=== PATIENT | female | born 1950 | race Caucasian/White ===

== ENCOUNTER → 2016-07-14 | Outpatient (CLI) | payer MEDICARE, MEDICAID ==
[~2016-07-14] MED LIST: ACETAMINOPHEN-O1 TAB PO; AMLODIPINE BESY1 TAB PO; CLARITIN10 MG PO; CYCLOBENZAPRINE10 MG PO; DULOXETINE HCL60 MG PO; Duragesic 25 M25 MCG TD; LORAZEPAM1 MG PO; NAPROSYN500 MG PO; OMEPRAZOLE D/R20 MG PO; OXYBUTYNIN CHLOR5 MG PO; TRAZADONE HYDR100 MG PO
== END | disposition home or self-care (01) ==
LOC: CT 07-10 14:00
PROVIDERS: Anesthesiology
DX: M54.16 Radiculopathy, lumbar region (principal)

== ENCOUNTER 2017-02-01 20:12 | Emergency (ER) | payer MEDICARE, MEDICAID ==
[~2017-02-01] VITALS: Ht 167.6 cm; Wt 56.7 kg
[2017-02-01 21:12] LABS: HEMATOCRIT 25.1 % (37.0-47.0); HEMOGLOBIN 7.5 g/dl (12.0-16.0); MEAN CELL VOLUME 90.9 fl (81.0-99.0); MEAN CORPUSCULAR HGB 27.2 pg (27.0-31.0); MEAN CORPUSCULAR HGB CONC 29.9 g/dl (33.0-37.0); MEAN PLATELET VOLUME 10.6 fl (9.6-12.3); PLATELET COUNT AUTOMATED 177 10*3/uL (130-400); RED BLOOD COUNT 2.76 10*6/uL (4.10-5.10); RED CELL DISTRI WIDTH 15.3 % (0-14.5); WHITE BLOOD COUNT 22.7 10*3/uL (4.8-10.8)
[2017-02-01 21:23] LABS: ACT PARTIAL THROMBO TIME 33.7 SECONDS (20.8-31.5); INTERNATIONAL NORM RATIO 1.1 (2.0-3.5)
[2017-02-01 21:31] LABS: ALBUMIN 1.6 gm/dl (3.1-4.5); ALKALINE PHOSPHATASE 168 U/L (45-117); BUN 20 mg/dl (7-24); CHLORIDE 99 mmol/L (98-107); CREATININE 1.23 mg/dL (0.55-1.02); MAGNESIUM 2.1 mg/dL (1.5-2.1); POTASSIUM 3.3 mmol/L (3.5-5.1); SGOT/AST 10 IU/L (3-35); SGPT/ALT 14 U/L (12-78); SODIUM 136 mmol/L (136-145); TOTAL PROTEIN 7.1 gm/dL (6.4-8.2)
[2017-02-01 21:32] LABS: PLATELET SUFFICIENCY NORMAL (NORMAL); TOTAL CELLS COUNTED 100 #CELLS
[2017-02-01 21:33] LABS: POLYCHROMASIA SLIGHT
[2017-02-01 21:34] LABS: ROULEAUX SLIGHT; TROPONIN I < 0.015 ng/ml (<0.045)
[2017-02-01 23:55] LABS: BILIRUBIN NEGATIVE (NEGATIVE); BLOOD NEGATIVE (NEGATIVE); CLARITY CLEAR (CLEAR); COLOR YELLOW (YELLOW); GLUCOSE NEGATIVE (NEGATIVE); KETONE NEGATIVE (NEGATIVE); LEUKO ESTERASE NEGATIVE (NEGATIVE); NITRITE NEGATIVE (NEGATIVE); SPECIFIC GRAVITY <= 1.005 (1.005-1.030); UROBILINOGEN 0.2 E.U./dl (0.2-1.0)
[2017-02-02 00:06] LABS: BACTERIA 1+
[2017-02-02 03:15] LABS: BASO % 0.2 % (0.0-1.0); EOS # 0.1 10*3/uL (0.0-0.4); EOS % 0.5 % (1.0-4.0); HEMATOCRIT 25.1 % (37.0-47.0); HEMOGLOBIN 7.4 g/dl (12.0-16.0); LYMPH % 10.8 % (27.0-41.0); MEAN CORPUSCULAR HGB 26.5 pg (27.0-31.0); MEAN CORPUSCULAR HGB CONC 29.5 g/dl (33.0-37.0); MEAN PLATELET VOLUME 10.2 fl (9.6-12.3); MONO # 1.2 10*3/uL (0.1-1.0); MONO % 6.3 % (3.0-9.0); NEUT # 15.2 10*3/uL (2.3-7.9); NEUT % 80.8 % (47.0-73.0); PLATELET COUNT AUTOMATED 262 10*3/uL (130-400); RED BLOOD COUNT 2.79 10*6/uL (4.10-5.10); RED CELL DISTRI WIDTH 15.3 % (0-14.5); WHITE BLOOD COUNT 18.8 10*3/uL (4.8-10.8)
[2017-02-02 04:44] VITALS: BP 111/42
== END 2017-02-02 05:05 | disposition short-term general hospital (02) ==
LOC: ED 20:12
PROVIDERS: Student in an Organized Health Care Education/Training Program
DX: A41.9 Sepsis, unspecified organism (principal); R65.20 Severe sepsis without septic shock; K92.2 Gastrointestinal hemorrhage, unspecified; J18.1 Lobar pneumonia, unspecified organism; D64.9 Anemia, unspecified; R91.8 Other nonspecific abnormal finding of lung field; I95.9 Hypotension, unspecified; Z91.030 Bee allergy status; Z88.0 Allergy status to penicillin; Z88.1 Allergy status to other antibiotic agents; Z91.040 Latex allergy status; Z88.8 Allergy status to other drugs, medicaments and biological substances; Z79.899 Other long term (current) drug therapy

== ENCOUNTER 2020-02-22 12:07 | Inpatient (IN) | payer OTHER, MEDICAID ==
[~2020-02-22] VITALS: Ht 167.6 cm; Wt 47.2 kg
[2020-02-22 12:12] VITALS: BP 129/59
[2020-02-22 12:53] LABS: BASO % 0.3 % (0.0-1.0); EOS % 0.3 % (1.0-4.0); HEMATOCRIT 41.1 % (37.0-47.0); LYMPH % 8.1 % (27.0-41.0); MEAN CELL VOLUME 93.4 fl (81.0-99.0); MEAN CORPUSCULAR HGB CONC 29.9 g/dl (33.0-37.0); MEAN PLATELET VOLUME 9.3 fl (9.6-12.3); MONO # 0.7 10*3/uL (0.1-1.0); MONO % 5.6 % (3.0-9.0); NEUT # 10.9 10*3/uL (2.3-7.9); NEUT % 85.2 % (47.0-73.0); PLATELET COUNT AUTOMATED 349 10*3/uL (130-400); RED CELL DISTRI WIDTH 14.3 % (0-14.5); WHITE BLOOD COUNT 12.8 10*3/uL (4.8-10.8)
[2020-02-22 13:06] LABS: INTERNATIONAL NORM RATIO 0.9 (2.0-3.5)
[2020-02-22 13:14] LABS: ALBUMIN 3.5 gm/dl (3.1-4.5); ALKALINE PHOSPHATASE 118 U/L (45-117); BUN 17 mg/dl (7-24); CHLORIDE 99 mmol/L (98-107); LIPASE 71 U/L (73-393); POTASSIUM 3.9 mmol/L (3.5-5.1); SGOT/AST 13 IU/L (3-35); SGPT/ALT 26 U/L (12-78); SODIUM 140 mmol/L (136-145); TOTAL PROTEIN 7.8 gm/dL (6.4-8.2)
[2020-02-22 13:15] LABS: TROPONIN I < 0.015 ng/ml (<0.045)
--- NOTE | 2020-02-22 14:02 | NUR ---
VOMITING COFFEE GROUND EMESIS. ZOFRAN INEFFECTIVE. DR SHEETS AWARE.
[2020-02-22 14:44] VITALS: BP 139/66
[2020-02-22 15:05] VITALS: BP 156/57
--- NOTE | 2020-02-22 16:12 | NUR ---
NAUSEA A LITTLE BETTER AFTER PHENERGAN.
[2020-02-22 16:48] VITALS: BP 126/58
--- NOTE | 2020-02-22 17:01 | NUR ---
RESTING IN NO DISTRESS. CALL LIGHT IN REACH.
--- NOTE | 2020-02-22 17:35 | NUR ---
DR ACHARYA NOTIFIED OF NEW CONSULT FOR GI BLEED. ORDERS RECIEVED.
[2020-02-22 17:40] VITALS: BP 117/67
--- NOTE | 2020-02-22 17:40 | NUR ---
A 69, admitted to , under the services of SHAWNEE Kumar DO with a diagnosis of GI BLEED. Chief complaint is COFFEE GROUND EMESIS. Patient arrived via ambulatory from ER. Monitor applied. Initial assessment completed. Vital signs taken and recorded. SHAWNEE KUMAR DO notified of admission to the unit. Orders received. See assessment for past medical history, medications and allergies. Patient and/or family oriented to unit. [facility] visitation policy reviewed. Clothing/patient valuable form completed. FAVIOLA VENTURA
[2020-02-22 20:00] VITALS: BP 138/66
--- NOTE | 2020-02-22 20:57 | NUR ---
ZOFRAN AND MORPHINE GIVEN FOR C/O NAUSEA AND MORRIS. WILL MONITOR. CALL LIGHT IN REACH.
--- NOTE | 2020-02-22 22:12 | NUR ---
PER PT, ZOFRAN AND MORPHINE EFFECTIVE. CALL LIGHT IN REACH. IVF INFUSING WITH EASE.
[2020-02-23] VITALS (8 sets, daily range): BP systolic 99–144; BP diastolic 42–86
--- NOTE | 2020-02-23 00:20 | NUR ---
RESTING IN BED; AROUSES EASILY FOR ASSESSMENT. SKIN VERY PALE, WARM & DRY. IV FLUIDS INFUSING INTO LEFT HAND WITHOUT DIFFICULTY; SITE ASYMPTOMATIC. PT. VOICES NO C/O AT THIS TIME. PRE-OP QUESTIONNAIRE DONE AT THIS TIME. NO DISTRESS NOTED; CALL LIGHT WITHIN REACH.
[2020-02-23 01:25] LABS: CLARITY CLEAR (CLEAR); COLOR YELLOW (YELLOW)
[2020-02-23 01:26] LABS: BILIRUBIN NEGATIVE; BLOOD NEGATIVE (NEGATIVE); GLUCOSE NEGATIVE; KETONE NEGATIVE; LEUKO ESTERASE NEGATIVE (NEGATIVE); NITRITE NEGATIVE (NEGATIVE); PH > 9.0 (4.5-8.0); SPECIFIC GRAVITY > 1.030 (1.001-1.030)
--- NOTE | 2020-02-23 04:00 | NUR ---
BATHED BY EDUARD.
[2020-02-23 06:13] LABS: BASO # 0.1 10*3/uL (0.0-0.1); BASO % 0.7 % (0.0-1.0); EOS # 0.3 10*3/uL (0.0-0.4); LYMPH # 1.9 10*3/uL (1.3-4.4); LYMPH % 25.4 % (27.0-41.0); MEAN CELL VOLUME 96.2 fl (81.0-99.0); MEAN CORPUSCULAR HGB 28.3 pg (27.0-31.0); MEAN CORPUSCULAR HGB CONC 29.4 g/dl (33.0-37.0); MEAN PLATELET VOLUME 9.8 fl (9.6-12.3); MONO # 0.6 10*3/uL (0.1-1.0); MONO % 8.2 % (3.0-9.0); NEUT # 4.6 10*3/uL (2.3-7.9); NEUT % 61.2 % (47.0-73.0); PLATELET COUNT AUTOMATED 277 10*3/uL (130-400); RED BLOOD COUNT 3.43 10*6/uL (4.10-5.10); RED CELL DISTRI WIDTH 14.8 % (0-14.5); WHITE BLOOD COUNT 7.6 10*3/uL (4.8-10.8)
[2020-02-23 06:33] LABS: ALBUMIN 2.6 gm/dl (3.1-4.5); ALKALINE PHOSPHATASE 85 U/L (45-117); BUN 22 mg/dl (7-24); CHLORIDE 110 mmol/L (98-107); CHOLESTEROL 131 mg/dL (<200); CREATININE 0.76 mg/dL (0.55-1.02); POTASSIUM 4.4 mmol/L (3.5-5.1); SGOT/AST 12 IU/L (3-35); SGPT/ALT 20 U/L (12-78); SODIUM 141 mmol/L (136-145); TOTAL PROTEIN 5.8 gm/dL (6.4-8.2); TRIGLYCERIDES 159 mg/dl (<150); VLDL CHOLESTEROL 32 mg/dL (6-40)
[2020-02-23 06:39] LABS: FREE T4 0.98 ng/dl (0.76-1.46); HDL CHOLESTEROL 43 mg/dl (40-60); LDL CHOLESTEROL 56 mg/dL (9-159); THYROID STIM HORMONE (HS) 0.835 uIU/ml (0.358-4.75)
[2020-02-23 07:27] LABS: VITAMIN D, 25-HYDROXY 33.6 ng/mL (30-100)
--- NOTE | 2020-02-23 09:00 | NUR ---
Plant Technician in to talk to patient. Patient states lives at home with alone. There are no steps in the home. Physician: jayden bond Pharmacy: [facility] Home health services: none Patient's level of ADLs: INDEPENDENT Patient has working utilities: all working DME: cane Follow-up physician's appointment after d/c: will be made by hospistalist nurse director upon discharge Does patient want to access PORTAL?: no Discharge plan discussed with patient, she states she lives at home alone, she is independent in adls and ambulation, drives, she states she will return home when discharged, discussed with her VNA and educated her on the services they provide, she declined and need for home health at this time, case management will follow. KELLEY SEN
--- NOTE | 2020-02-23 11:21 | NUR ---
PT OFF FLOOR VIA BED TO OR FOR EGD WITH DR ACHARYA.
--- NOTE | 2020-02-23 11:30 | NUR ---
OT NOTE Occupational therapy order received and chart reviewed. Per discussion with nurse, OTR to hold therapy at this time due to scheduled EGD this date. Will check back at a later date for completion of an OT evaluation. Thank you. Aggie Summers OTR/L
--- NOTE | 2020-02-23 11:36 | NUR ---
PHYSICAL THERAPY [place] received chart reviewed attempted to see pt however per nsg to defer therapy at this time pt scheduled for EGD will follow at a later date. Olamide Crockett PT
--- NOTE | 2020-02-23 14:32 | NUR ---
PT RETURNED FROM OR. AFTERNOON ASSESSMENT UNCHANGED. PT VOICES NO NEEDS.STABLE AT THIS TIME. CALL LIGHT IN REACH.BED ALARM INTACT.
--- NOTE | 2020-02-23 17:13 | NUR ---
pt requested pain meds post op. lying in bed post op 30 degree angle pain rating 7 out of 10. watching tv at this time. Verbalized pain relief.
--- NOTE | 2020-02-23 17:26 | NUR ---
ZOFRAN GIVEN FOR C/O NAUSEA.
--- NOTE | 2020-02-23 19:44 | NUR ---
PATIENT RESTING IN BED WATCHING TV AND EATING. C/O NAUSEA. PREVIOUS ZOFRAN NOT EFFECTIVE. DENIES ABDOMINAL PAIN. ENCOURAGED TO NOTIFY THIS RN IF NAUSEA INCREASES. BED IN LOWEST POSITION, CALL LIGHT IN REACH
--- NOTE | 2020-02-23 19:55 | NUR ---
DR MCCLELLAND'S ANSWERING SERVICE AWARE OF CONSULT
--- NOTE | 2020-02-23 20:05 | NUR ---
SPOKE WITH DR MCCLELLAND AT THIS TIME. INFORMED HER OF THE SURGERY REPORT, AND PATIENT STILL COMPLAINING OF NAUSEA. STATES SHE WILL SEE THE PATIENT TOMORROW.
--- NOTE | 2020-02-23 21:04 | NUR ---
PATIENT C/O NAUSEA AND "STOMACH BURNING". DR TERRELL MADE AWARE. STATES HE WILL PUT SOMETHING IN
--- NOTE | 2020-02-23 21:29 | NUR ---
GI COCKTAIL GIVEN PER ORDER. PATIENT TOLERATED WELL. WILL MONITOR.
[2020-02-24] VITALS: BP 143/59
--- NOTE | 2020-02-24 02:55 | NUR ---
DR WASHBURN AWARE OF PATIENT C/O BURNING IN HER STOMACH. ORDER TAKEN FOR TUMS
--- NOTE | 2020-02-24 03:09 | NUR ---
MEDICATED WITH ONE TIME MYRA ORDER FOR C/O BURNING IN THE ESOPHAGUS. WILL MONITOR
--- NOTE | 2020-02-24 04:09 | NUR ---
PATIENT RESTING IN BED WITH EYES CLOSED. RESPS EASY AND REGULAR. MEDICATION SEEMS EFFECTIVE
--- NOTE | 2020-02-24 05:45 | NUR ---
PATIENT FINISHED FIRST BOTTLE OF CT CONTRAST. STATES SHE CANNOT DRINK ANOTHER ONE. BLAZE IN RADIOLOGY AND DR WASHBURN BOTH MADE AWARE.
[2020-02-24 06:57] LABS: BASO # 0.1 10*3/uL (0.0-0.1); BASO % 0.6 % (0.0-1.0); EOS # 0.3 10*3/uL (0.0-0.4); EOS % 3.5 % (1.0-4.0); HEMATOCRIT 33.4 % (37.0-47.0); LYMPH # 1.6 10*3/uL (1.3-4.4); LYMPH % 18.7 % (27.0-41.0); MEAN CELL VOLUME 94.9 fl (81.0-99.0); MEAN CORPUSCULAR HGB 27.8 pg (27.0-31.0); MEAN CORPUSCULAR HGB CONC 29.3 g/dl (33.0-37.0); MONO # 0.7 10*3/uL (0.1-1.0); MONO % 7.8 % (3.0-9.0); NEUT # 5.8 10*3/uL (2.3-7.9); NEUT % 68.9 % (47.0-73.0); PLATELET COUNT AUTOMATED 277 10*3/uL (130-400); RED BLOOD COUNT 3.52 10*6/uL (4.10-5.10); RED CELL DISTRI WIDTH 14.6 % (0-14.5); WHITE BLOOD COUNT 8.5 10*3/uL (4.8-10.8)
[2020-02-24 07:07] LABS: BUN 16 mg/dl (7-24); CHLORIDE 109 mmol/L (98-107); CREATININE 0.72 mg/dL (0.55-1.02); POTASSIUM 4.2 mmol/L (3.5-5.1); SODIUM 140 mmol/L (136-145)
--- NOTE | 2020-02-24 07:30 | NUR ---
PT RESTING IN BED. VOICES NO CONCERNS AT THIS TIME. RESPS EASY AND NON LABORED. NO S/S OF DISTRESS NOTED. VSS. WHITE BOARD UPDATED. POC DISCUSSED W PT. PT C/O SLIGHT NAUSEA. REPORTS NO FURTHER EPISODES OF EMESIS SINCE ADMISSION. LUNG CLEAR/DIM. WILL CONTINUE TO MONITOR. CALL LIGHT WITHIN REACH.
[2020-02-24 08:00] VITALS: BP 138/50
--- NOTE | 2020-02-24 08:00 | NUR ---
ATTEMPTED TO REACH DR PALACIO REGARDING NEW CONSULT
--- NOTE | 2020-02-24 09:00 | NUR ---
case management visits with patient, she states she will return home when discharged and denies any home needs, case management will follow
--- NOTE | 2020-02-24 10:42 | NUR ---
DR PALACIO NOTIFIED OF NEW CONSULT. NO NEW ORDERS AT THIS TIME.
--- NOTE | 2020-02-24 11:32 | NUR ---
DR PALACIO INTO SEE PT. STATES PT DOES NOT HAVE CANCER AND THAT IT IS POSTOP CHANGES.
[2020-02-24 12:00] VITALS: BP 123/67
--- NOTE | 2020-02-24 13:13 | NUR ---
PHYSICAL THERAPY Initial order received on 02/23/20 at 0907 AM however cancellation order recieved 02/23/20 at 1449 PM. Due to order cancelled by MD will not follow at this time, thank you. Olamide Crockett PT
--- NOTE | 2020-02-24 13:14 | NUR ---
OT NOTE An initial OT evaluation order was received on 02/23/2020 at 0907 AM. However, a cancellation request received on 02/23/2020 at 1449 PM. Due to cancellation request by , no further OT indicated at this time. Thank you. Aggie Summers, OTR/L
--- NOTE | 2020-02-24 14:00 | NUR ---
PT RESTING IN BED WATCHING TV. RESPS EASY AND NON LABORED. NO S/S OF DISTRESS NOTED. VSS. WILL CONTINUE TO MONITOR. CALL LIGHT WITHIN REACH.
[2020-02-24 16:00] VITALS: BP 141/68
--- NOTE | 2020-02-24 16:10 | NUR ---
PATIENTS SON UPDATED ON PLAN OF CARE. QUESTIONS ANSWERED
[2020-02-24 20:00] VITALS: BP 119/47
--- NOTE | 2020-02-24 22:52 | NUR ---
PATIENT COMPLAINING OF EPIGATSRIC BURNING PATIENT GIVEN MAALOX FOR INDIGESTION.
[2020-02-25] VITALS: BP 127/53
--- NOTE | 2020-02-25 01:33 | NUR ---
SPOKE TO DR WASHBURN PER PT REQUEST OF WANTING SOMETHING FOR A HEAD ACHE, WILL ADD TYLENOL 650 Q4 PRN ORDERED.
--- NOTE | 2020-02-25 01:49 | NUR ---
PRN TYLENOL PO GIVEN FOR COMPLAINTS OF A HEAD ACHE. WILL MONITOR FOR EFFECTIVENESS
--- NOTE | 2020-02-25 02:30 | NUR ---
REASSESSMENT AFTER TYLENOL, AND PT IS SLEEPING. WILL CONTINUE TO MONITOR
[2020-02-25 06:51] LABS: BASO # 0.1 10*3/uL (0.0-0.1); BASO % 0.9 % (0.0-1.0); EOS # 0.5 10*3/uL (0.0-0.4); EOS % 7.8 % (1.0-4.0); HEMATOCRIT 29.8 % (37.0-47.0); LYMPH # 1.9 10*3/uL (1.3-4.4); LYMPH % 29.6 % (27.0-41.0); MEAN CELL VOLUME 93.7 fl (81.0-99.0); MEAN CORPUSCULAR HGB CONC 29.9 g/dl (33.0-37.0); MEAN PLATELET VOLUME 9.9 fl (9.6-12.3); MONO # 0.5 10*3/uL (0.1-1.0); MONO % 8.4 % (3.0-9.0); NEUT # 3.4 10*3/uL (2.3-7.9); NEUT % 52.7 % (47.0-73.0); PLATELET COUNT AUTOMATED 277 10*3/uL (130-400); RED BLOOD COUNT 3.18 10*6/uL (4.10-5.10); RED CELL DISTRI WIDTH 14.6 % (0-14.5); WHITE BLOOD COUNT 6.5 10*3/uL (4.8-10.8)
[2020-02-25 08:00] VITALS: BP 116/60
--- NOTE | 2020-02-25 09:02 | NUR ---
ZOFRAN GIVEN FOR COMPLAINTS OF NAUSEA. PT NOTED TO HAVE ALREADY EATEN BREAKFAST. WILL MONITOR. NO FURTHER COMPLAINTS AT THIS TIME. DR.K. BIGGS IN TO SEE PT.
--- NOTE | 2020-02-25 09:46 | NUR ---
PER PT, ZOFRAN EFFECTIVE.
[2020-02-25 12:00] VITALS: BP 106/40
--- NOTE | 2020-02-25 14:39 | NUR ---
NO COMPLAINTS VOICED AT THIS TIME. WILL CONTINUE TO MONITOR. CALL LIGHT IN REACH.
[2020-02-25 16:00] VITALS: BP 128/52
--- NOTE | 2020-02-25 16:29 | NUR ---
MORPHINE, ZOFRAN, AND DULCOLAX GIVEN FOR COMPLAINTS OF SHARP ABD CRAMPING. NO BM PER PT SINCE DAY OF ADMISSION. SAYS SHE SOMETIMES "GETS BOUND UP BUT HAS BEEN DOING BETTER OVER THE LAST YEAR." WILL MONITOR FOR EFFECTIVENESS. PRUNE JUICE ALSO GIVEN AT THIS TIME AND OFFERED RAISIN BRAN CEREAL, BUT DECLINED THE CEREAL UNTIL LATER ON.
--- NOTE | 2020-02-25 19:46 | NUR ---
PATIENT RESTING IN BED WATCHING TV. C/O CONSTIPATION. STATES HER ABDOMEN IS FEELING A LITTLE BETTER OTHERWISE. BED IN LOWEST POSITION, CALL LIGHT IN REACH
--- NOTE | 2020-02-25 19:48 | NUR ---
DR WASHBURN AWARE OF PATIENT C/O CONSTIPATION WITHOUT RELIEF FROM DULCOLAX. STATES SHE WILL PUT SOMETHING IN
[2020-02-25 20:00] VITALS: BP 113/44
--- NOTE | 2020-02-25 20:19 | NUR ---
IN TO TAKE PATIENT MILK OF MAG FOR CONSTIPATION. SHE STATES SHE CANNOT TAKE IT AND HAS NEVER BEEN ABLE TO TAKE IT ALL OF HER LIFE. DR WASHBURN MADE AWARE.
--- NOTE | 2020-02-25 20:49 | NUR ---
MAALOX GIVEN FOR C/O "BURNING IN THE ESOPHAGUS". WILL MONITOR
--- NOTE | 2020-02-25 21:49 | NUR ---
PATIENT STATES MAALOX DID NOT HELP. STATES NOW SHE HAS "BURNING IN THE ESOPHAGUS AND EVEN IN MY BACK". REQUESTING ZOFRAN AND TYLENOL.
--- NOTE | 2020-02-25 22:21 | NUR ---
MEDICATED WITH TYLENOL FOR C/O PAIN. WILL MONITOR
--- NOTE | 2020-02-25 22:22 | NUR ---
MEDICATED WITH ZOFRAN FOR C/O NAUSEA. PATIENT HAD 9 CUPS OF DRINKS SITTING ON BEDSIDE TABLE. 2 ORANGE JUICES, 3 COFFEE, 3 COCA ADELITA, AND ONE WATER. PATIENT WAS EDUCATED ON THE SODA, COFFEE AND ORANGE JUICE POSSIBLY ATTRIBUTING TO HER "ESOPHAGUS PAIN". PATIENT STATES "THEN WHAT DO YOU EXPECT ME TO DRINK?". WHEN THIS RN SUGGESTED THAT THE PATIENT DRINK WATER UNTIL HER STOMACH STOPS HURTING, SHE STATES "I CANNOT DRINK WATER. IT MAKES THE PAIN WORSE AND MAKES ME PUKE". PATIENT ALLOWED THIS RN TO THROW OUT THE 3 COFFEE'S, ORANGE JUICE, AND 2 SODAS. PATIENT STATES "IF YOU THROW ALL OF MY POP AWAY I WILL NOT HAVE ANYTHING TO DRINK. I WAIT UNTIL IT GOES FLAT ANYWAY SO IT DOES NOT MAKE ME SICK". PATIENT WAS GIVEN A FRESH CUP OF ICE WATER, MILK, AND REFUSED TO THROW AWAY ONE OF HER SODAS. WILL MONITOR FOR ZOFRAN EFFECTIVENESS.
--- NOTE | 2020-02-25 23:21 | NUR ---
PATIENT RESTING WITH EYES CLOSED. MEDICATION SEEMS EFFECTIVE
[2020-02-26] VITALS: BP 124/57
--- NOTE | 2020-02-26 05:36 | NUR ---
DR WASHBURN AWARE OF PATIENT REQUESTING TUMS. ORDER TAKEN
[2020-02-26 06:08] LABS: BASO % 0.5 % (0.0-1.0); EOS # 0.1 10*3/uL (0.0-0.4); EOS % 1.2 % (1.0-4.0); HEMATOCRIT 31.4 % (37.0-47.0); LYMPH # 1.8 10*3/uL (1.3-4.4); LYMPH % 21.5 % (27.0-41.0); MEAN CELL VOLUME 91.8 fl (81.0-99.0); MEAN CORPUSCULAR HGB 27.8 pg (27.0-31.0); MEAN CORPUSCULAR HGB CONC 30.3 g/dl (33.0-37.0); MEAN PLATELET VOLUME 9.7 fl (9.6-12.3); MONO # 0.5 10*3/uL (0.1-1.0); MONO % 6.2 % (3.0-9.0); NEUT # 5.8 10*3/uL (2.3-7.9); NEUT % 70.1 % (47.0-73.0); PLATELET COUNT AUTOMATED 327 10*3/uL (130-400); RED BLOOD COUNT 3.42 10*6/uL (4.10-5.10); RED CELL DISTRI WIDTH 14.5 % (0-14.5); WHITE BLOOD COUNT 8.3 10*3/uL (4.8-10.8)
--- NOTE | 2020-02-26 07:49 | NUR ---
PT REPORTING 8/10 ABD PAIN, PRN MORHPINE GIVEN PER ORDER. SEE EMAR.
[2020-02-26 08:00] VITALS: BP 120/60
--- NOTE | 2020-02-26 08:30 | NUR ---
PT REPORTS THE MORPHINE WAS EFFECTIVE. CALL LIGHT WITHIN REACH, SIDE RAILS UPX2, BED IN LOWEST POSITION.
--- NOTE | 2020-02-26 09:19 | NUR ---
PT REPORTS PAIN IS STILL PRESENT TO ABDOMEN, PRN TYLENOL GIVEN AT THIS TIME. SEE EMAR.
--- NOTE | 2020-02-26 10:19 | NUR ---
PT REPORTS TYLENOL EFFECTIVE.
[2020-02-26 12:00] VITALS: BP 131/65
--- NOTE | 2020-02-26 15:36 | NUR ---
NOTIFIED DR BIGGS OF PT STILL UNABLE TO HAVE BM. PT C/O PAIN TO ABD AND UPON ASSESSMENT PT ABD IS DISTENDED AND FIRM. PT HAS BEEN PASSING GAS. CURRENTLY AMBULATING IN HALLWAY WITH PA. TOLERATING WELL.
[2020-02-26 16:00] VITALS: BP 121/49
--- NOTE | 2020-02-26 16:45 | NUR ---
PT OFF THE FLOOR AT THIS TIME FOR CT, TRANSPORTED BY RN AND PA.
--- NOTE | 2020-02-26 17:15 | NUR ---
PT RETURNED TO FLOOR AT THIS TIME.
--- NOTE | 2020-02-26 17:53 | NUR ---
PLACED A CALL TO CT AND SPOKE TO BINU SEBASTIAN REGARDING STAT CT ORDER STILL AWAITING RESULTS. PER BINU SHE "WILL MAKE CONTACT TO SEE" ONCE SHE WAS DONE WITH PT ON TABLE.
--- NOTE | 2020-02-26 17:54 | NUR ---
MEDICATIONS HELD, PENDING CT RESULTS.
--- NOTE | 2020-02-26 19:00 | NUR ---
DR BIGGS NOTIFIED OF STAT CT RESULT AND ORDERS RECIEVED.
--- NOTE | 2020-02-26 19:17 | NUR ---
PATIENT RESTING IN BED WATCHING TV. MEDICATED WITH PRN FLEETS ENEMA PER ORDER. PATIENT TOLERATED WELL. DENIES PAIN AT THIS TIME. ENCOURAGED TO CALL WHEN SHE NEEDS TO USE THE RESTROOM. VERBALIZED UNDERSTANDING. BED IN LOWEST POSITION, CALL LIGHT IN REACH
--- NOTE | 2020-02-26 19:58 | NUR ---
PATIENT HAD THREE MEDIUM SIZED, HARD, STOOLS. STATES SHE DOES NOT FEEL LIKE SHE HAS TO GO ANYMORE.
[2020-02-26 20:00] VITALS: BP 123/61
--- NOTE | 2020-02-26 21:15 | NUR ---
PATIENT DENIES ANY MORE BOWEL MOVEMENTS. STATES SHE DOES NOT FEEL LIKE SHE HAS TO GO. DENIES ANY NEEDS AT THIS TIME. BED IN LOWEST POSITION, CALL LIGHT IN REACH
--- NOTE | 2020-02-26 21:45 | NUR ---
CALLED AND SPOKE WITH DR MCCABE REGARDING PATIENT HOARDING DRINKS AND SNACKS. IT WAS PASSED ON TO THIS RN THAT THE PATIENT IS A HOARDER AT HOME PER HER SON. PATIENT IS RELUCTANT TO LET THIS RN OR PHYLLIS SKINNER TAKE THE OLD SNACKS AND DRINKS OUT OF HER ROOM. SHE STATES "JUST GET ME A BAG AND I WILL KEEP THEM". SOME OF THE SNACKS MENTIONED ARE GRAPES, CAKE, AND VEGETABLES. DRINKS ON THE TABLE THAT THE PATIENT WILL NOT LET THIS RN THROW AWAY ARE OLD, COLD COFFE, COCA COLA, AND JUICE. PATIENT WAS EDUCATED ON THE IMPORTANCE OF NOT EATING OLD SPOILED FOOD AND DRINKING POP AND COFFEE, THAT THESE THINGS CAN FURTHER HURT HER STOMACH. PATIENT VERBALIZED UNDERSTANDING, BUT STILL WILL NOT LET THIS RN GET RID OF HER OLD SNACKS.
[2020-02-27] VITALS: BP 119/47
--- NOTE | 2020-02-27 02:12 | NUR ---
24 HR chart check completed.
--- NOTE | 2020-02-27 02:13 | NUR ---
PATIENT RESTING IN BED WITH EYES CLOSED. RESPS EASY AND REGULAR. BED IN LOWEST POSITION, CALL LIGHT IN REACH
--- NOTE | 2020-02-27 05:58 | NUR ---
PATIENT RESTING IN BED WATCHING TV. DENIES NEEDS AT THIS TIME. BED IN LOWEST POSITION, CALL LIGHT IN REACH
[2020-02-27 07:25] LABS: BASO # 0.1 10*3/uL (0.0-0.1); BASO % 0.8 % (0.0-1.0); EOS # 0.3 10*3/uL (0.0-0.4); EOS % 3.9 % (1.0-4.0); HEMATOCRIT 30.4 % (37.0-47.0); LYMPH # 1.6 10*3/uL (1.3-4.4); LYMPH % 21.9 % (27.0-41.0); MEAN CELL VOLUME 94.4 fl (81.0-99.0); MEAN CORPUSCULAR HGB 28.6 pg (27.0-31.0); MEAN CORPUSCULAR HGB CONC 30.3 g/dl (33.0-37.0); MEAN PLATELET VOLUME 9.6 fl (9.6-12.3); MONO # 0.6 10*3/uL (0.1-1.0); MONO % 7.4 % (3.0-9.0); NEUT # 4.9 10*3/uL (2.3-7.9); NEUT % 65.7 % (47.0-73.0); PLATELET COUNT AUTOMATED 306 10*3/uL (130-400); RED BLOOD COUNT 3.22 10*6/uL (4.10-5.10); RED CELL DISTRI WIDTH 14.9 % (0-14.5); WHITE BLOOD COUNT 7.4 10*3/uL (4.8-10.8)
[2020-02-27 07:59] VITALS: BP 108/78
--- NOTE | 2020-02-27 08:53 | NUR ---
ZOFRAN GIVEN FOR C/O NAUSEA WHILE EATING BREAKFAST. DULCOLAX ALSO GIVEN WITH AM MEDS FOR CONSTIPATION. WILL MONITOR. CALL LIGHT IN REACH.
--- NOTE | 2020-02-27 09:00 | NUR ---
case management visits with patient, again discussed with her VNA and educated her on the services they provide, she again declined
[2020-02-27] MEDS ORDERED: Carafate1 GM PO (09:35)
[2020-02-27] MEDS ORDERED: FLUCONAZOLE100 MG PO (09:35)
--- NOTE | 2020-02-27 09:37 | NUR ---
PER PT, ZOFRAN EFFECTIVE.
[2020-02-27 11:48] VITALS: BP 120/48
--- NOTE | 2020-02-27 14:36 | NUR ---
ZOFRAN GIVEN FOR COMPLAINTS OF NAUSEA. WILL MONITOR. CALL LIGHT IN REACH.
--- NOTE | 2020-02-27 15:23 | NUR ---
PER PT, ZOFRAN EFFECTIVE.
[2020-02-27 16:00] VITALS: BP 116/51
--- NOTE | 2020-02-27 17:43 | NUR ---
Discharge instructions reviewed with patient/family. Patient receptive and verbalizes understanding. Follow-up care arranged. Written instructions given to patient/family. EDGAR MCKENZIE
== END 2020-02-27 17:43 | disposition home or self-care (01) | DRG 377 ==
LOC: ED 12:07 → EDHOLD 16:47 → 4E 16:47
PROVIDERS: Emergency Medicine; Hospitalist; Internal Medicine; Student in an Organized Health Care Education/Training Program; ADMIT Internal Medicine; ATTEND Internal Medicine
PROC: 0DB38ZX Excision of Lower Esophagus, Via Natural or Artificial Opening Endoscopic, Diagnostic (ICD-10-PCS; principal; 2020-02-23)
PROC: 0DB68ZX Excision of Stomach, Via Natural or Artificial Opening Endoscopic, Diagnostic (ICD-10-PCS; principal; 2020-02-23)
DX: K29.71 Gastritis, unspecified, with bleeding (principal); E43 Unspecified severe protein-calorie malnutrition; R65.10 Systemic inflammatory response syndrome (SIRS) of non-infectious origin without acute organ dysfunction; B37.81 Candidal esophagitis; D62 Acute posthemorrhagic anemia; Z68.1 Body mass index [BMI] 19.9 or less, adult; K92.0 Hematemesis; K21.9 Gastro-esophageal reflux disease without esophagitis; F41.9 Anxiety disorder, unspecified; G47.00 Insomnia, unspecified; G62.9 Polyneuropathy, unspecified; R74.8 Abnormal levels of other serum enzymes; I10 Essential (primary) hypertension; J98.4 Other disorders of lung; R73.9 Hyperglycemia, unspecified; E83.41 Hypermagnesemia; F42.3 Hoarding disorder; K44.9 Diaphragmatic hernia without obstruction or gangrene; Z88.0 Allergy status to penicillin; Z88.1 Allergy status to other antibiotic agents; Z91.030 Bee allergy status; Z91.041 Radiographic dye allergy status; Z91.040 Latex allergy status; Z83.3 Family history of diabetes mellitus; Z82.49 Family history of ischemic heart disease and other diseases of the circulatory system

== ENCOUNTER 2023-09-26 09:17 | Emergency (ER) | payer MEDICAID ==
[~2023-09-26] VITALS: Ht 167.6 cm; Wt 71.7 kg
[~2023-09-26 09:17] MED LIST changes: +Carafate1 GM PO; +FLUCONAZOLE100 MG PO; +NYST SUSP PO; +Nystatin 100,000 UNI PO; +OMEPRAZOLE40 MG PO; +ONDANSETRON HYDR4 M1 PO
[2023-09-26] MEDS ORDERED: CLONAZEPAM0.25 MG PO (09:36)
[2023-09-26] MEDS ORDERED: COLACE100 MG PO (09:36)
[2023-09-26] MEDS ORDERED: CYCLOBENZAPRINE5 M3 PO (09:37)
[2023-09-26] MEDS ORDERED: GABAPENTIN100 M2 PO (09:37)
[2023-09-26] MEDS ORDERED: REMERON15 M2 PO (09:38)
[2023-09-26] MEDS ORDERED: VITAMIN D3125 MC1 PO (09:39)
[2023-09-26] MEDS ORDERED: TYLENOL325 M1 PO (09:39)
[2023-09-26] MEDS ORDERED: DIAZEPAM 5 MG TAB PO ONE (10:10)
[2023-09-26 10:23] LABS: BASO # 0.1 10*3/uL (0.0-0.1); BASO % 0.8 % (0.0-1.0); EOS # 0.3 10*3/uL (0.0-0.4); EOS % 4.8 % (1.0-4.0); LYMPH # 1.3 10*3/uL (1.3-4.4); LYMPH % 17.9 % (27.0-41.0); MEAN CELL VOLUME 93.2 fl (81.0-99.0); MEAN CORPUSCULAR HGB 27.5 pg (27.0-31.0); MEAN CORPUSCULAR HGB CONC 29.5 g/dl (33.0-37.0); MEAN PLATELET VOLUME 9.6 fl (9.6-12.3); MONO # 0.7 10*3/uL (0.1-1.0); MONO % 9.3 % (3.0-9.0); NEUT # 4.7 10*3/uL (2.3-7.9); NEUT % 66.9 % (47.0-73.0); PLATELET COUNT AUTOMATED 243 10*3/uL (130-400); RED BLOOD COUNT 4.72 10*6/uL (4.10-5.10); RED CELL DISTRI WIDTH 14.9 % (0-14.5); WHITE BLOOD COUNT 7.1 10*3/uL (4.8-10.8)
[2023-09-26 10:43] LABS: BUN 12 mg/dl (9-23); CHLORIDE 108 mmol/L (98-107); POTASSIUM 4.1 mmol/L (3.4-5.1)
[2023-09-26 11:51] LABS: BILIRUBIN Negative (Negative); BLOOD Negative (Negative); CLARITY Clear (Clear); COLOR Yellow (Yellow); GLUCOSE Negative (Negative); KETONE Negative (Negative); LEUKO ESTERASE 1+ (Negative); NITRITE Negative (Negative); PH 6.5 (4.5-8.0); UROBILINOGEN 0.2 E.U./dl (0.0-1.0)
[2023-09-26 12:08] LABS: BACTERIA TRACE; MUCOUS TRACE
[2023-09-26] MEDS ORDERED: Ketorolac Tromethamine 30 MG/ML VIAL IM ONE (13:25)
[2023-09-26] MEDS ORDERED: Nitrofurantoin Monohydrate/N 100 MG CAP PO ONE (13:25)
[2023-09-26] MEDS ORDERED: MACROBID100 M1 PO (13:27)
[2023-09-26] MEDS ORDERED: HYDROCODONE-AC1 EAC1 PO (13:27)
[2023-09-26] MEDS ORDERED: CEFDINIR 300 MG CAP PO ONE (13:30)
[2023-09-26] MEDS ORDERED: OMNICEF300 MG PO (13:31)
[2023-09-26 14:01] VITALS: BP 132/73
== END 2023-09-26 15:00 | disposition home or self-care (01) ==
LOC: ED 09:17
PROVIDERS: Internal Medicine
DX: N39.0 Urinary tract infection, site not specified (principal); M25.512 Pain in left shoulder; F41.9 Anxiety disorder, unspecified; I10 Essential (primary) hypertension; F32.A Depression, unspecified; Z91.030 Bee allergy status; Z88.0 Allergy status to penicillin; Z88.8 Allergy status to other drugs, medicaments and biological substances; Z91.040 Latex allergy status; Z88.1 Allergy status to other antibiotic agents; Z91.041 Radiographic dye allergy status; Z90.89 Acquired absence of other organs; Z98.890 Other specified postprocedural states